=== PATIENT | female | born 1965 ===

== ENCOUNTER 2022-04-21 05:00 | Day surgery (SDC) | payer OTHER ==
[~2022-04-21] VITALS: Ht 162.6 cm; Wt 117.9 kg
[~2022-04-21 05:00] MED LIST: ACID REDUCER20 M1 PO; ALBUT IH; ATORVAST PO; CARAFATE1 GM/10 ML PO; COZAAR100 MG PO; FLOVENT IH; JENTADUETO XR1 EAC1 PO; SINGUL PO; SYNTHROID137 MCG PO; VERELAN240 MG PO
[2022-04-21] MEDS ORDERED: PERCOCET 5-3251 EACH PO (09:28)
== END 2022-04-21 11:00 | disposition home or self-care (01) ==
LOC: CIR.AMB 05:00
PROVIDERS: ATTEND Surgery
DX: C73 Malignant neoplasm of thyroid gland (principal); I10 Essential (primary) hypertension; E11.9 Type 2 diabetes mellitus without complications